=== PATIENT | female | born 1940 | race Caucasian/White ===

== ENCOUNTER 2019-11-24 07:10 | Day surgery (SDC) | payer MEDICARE, BC ==
[2019-11-24] MEDS ORDERED: Propofol 200 MG/20 ML SDV IV ONE (07:11)
[2019-11-24] MEDS ORDERED: Lactated Ringers 1,000 ML IV SCH (07:30)
[2019-11-24] MEDS ORDERED: Sodium Chloride 0.9% 10 ML Syringe FLUSH PRN (07:30)
--- NOTE | 2019-11-24 08:15 | PCM.PN ---
- General Info Date of Service: 11/24/19 - Review of Systems Systems Review Comment:: 78 y/o female with recent Positive Cologuard test here for colonoscopy. Her last colon exam was about 10 years ago. She denies any recent symptoms. She is medically stable to proceed. Her recent H and P is reviewed and no significant changes are noted. I have discussed the proposed colonoscopy with the patient. Her questions are answered and she agrees to proceed accepting risks. - Patient Data Vitals - Most Recent: Last Vital Signs Temp 97.6 F 11/24/19 07:20 Pulse 73 11/24/19 07:20 Resp 18 11/24/19 07:20 BP 132/76 11/24/19 07:20 Pulse Ox 98 11/24/19 07:20 Weight - Most Recent: 184 lb Med Orders - Current: Current Medications Lactated Ringer's (Ringers, Lactated) 1,000 mls @ 125 mls/hr IV ASDIRECTED NGUYEN Last Admin: 11/24/19 07:45 Dose: 125 mls/hr Sodium Chloride (Saline Flush) 10 ml FLUSH ASDIRECTED PRN PRN Reason: Keep Vein Open - Exam Lungs: Clear to Auscultation Cardiovascular: No Murmurs, Irregular Rhythm Sepsis Event Note - Focused Exam Vital Signs: Vital Signs Temp Pulse Resp BP Pulse Ox 11/24/19 07:20 97.6 F 73 18 132/76 98 Date Exam was Performed: 11/24/19 Time Exam was Performed: 08:11 - Problem List Review Problem List Initiated/Reviewed/Updated: Yes - My Orders Last 24 Hours: My Active Orders 11/24/19 07:30 Patient Status [ADT] Routine Blood Glucose Check, Bedside [RC] ONETIME Patient to Empty Bladder [RC] ASDIRECTED Verify Patient Consent Obtain [RC] ASDIRECTED Lactated Ringers [Ringers, Lactated] 1,000 ml IV ASDIRECTED Sodium Chloride 0.9% [Saline Flush] 10 ml FLUSH ASDIRECTED PRN Peripheral IV Insertion Adult [OM.PC] Routine 11/24/19 Breakfast Nothing Per Oral Diet [DIET] - Assessment Assessment:: Positive Cologuard Test - Plan Plan:: Colonoscopy
--- NOTE | 2019-11-24 09:09 | PCM.OPNOTE ---
- General Post-Op/Procedure Note Date of Surgery/Procedure: 11/24/19 Operative Procedure(s): Colonoscopy with Polypectomy Findings: Flat, soft irregular polyp descending colon Extensive Sigmoid Diverticulosis Moderate External hemorrhoids Pre Op Diagnosis: Positive Cologuard Test Post-Op Diagnosis: Descending Colon Polyp. Sigmoid Diverticulosis. External Hemorrhoids Anesthesia Technique: MAC Primary Surgeon: Jerzy Bonilla Pathology: Descending Colon Polyp EBL in mLs: 3 Complications: None Condition: Good
--- NOTE | 2019-11-24 15:59 | OR ---
DATE OF OPERATION: 11/24/2019 SURGEON: Jerzy Bonilla MD PREOPERATIVE DIAGNOSIS: Positive Cologuard test. POSTOPERATIVE DIAGNOSES: Descending colon polyp, sigmoid colon diverticulosis, external hemorrhoids. OPERATION PERFORMED: Colonoscopy with polypectomy. INDICATIONS FOR SURGERY: This 78-year-old female was recently noted to have a positive Cologuard test. It has been several years since her last colon exam and she comes for colonoscopy. FINDINGS: In the descending colon approximately 45 cm from the anal verge, there was noted a flat irregular soft polyp approximately 12 mm in size noted on one of the colonic folds. The patient also has extensive diverticulosis of the sigmoid region, although this does not appear to be acutely inflamed or otherwise complicated. There are also moderate to large external hemorrhoids. PROCEDURE IN DETAIL: The patient was taken to the procedure room. She was given intravenous sedation, and with her in the left lateral decubitus position, digital rectal exam was performed. No rectal masses were noted. The Olympus colonoscope was inserted into the rectum. Retroflexed examination of the rectal canal was performed. The scope was then carefully advanced under direct visualization through the entire length of the colon until the cecum was reached. Cecal acquisition was confirmed by noting the normal internal cecal anatomy including the appendiceal orifice and ileocecal valve. After examining the cecum, the scope was slowly withdrawn sequentially re-examining the colonic segments. In the descending colon, the above-described polyp was identified. This was removed with cautery snare. The polyp was quite soft and the majority of the polyp was removed with a snare without cautery. A few small fragments of remaining polyp were then cauterized with the cautery snare and this was also used at the base of the polypectomy site and hemostasis appeared to be maintained well during this procedure. With no sign of any bleeding or any other complication, examination was continued examining the remainder of the colon and rectum. After the exam had been completed, the scope was removed and the patient was taken from the procedure room in satisfactory condition. ESTIMATED BLOOD LOSS: 3 mL. COMPLICATIONS: None. PROGNOSIS: Good. /[id number] NIKKO/PARAG
== END 2019-11-24 09:55 | disposition home or self-care (01) ==
LOC: FB.SDS 07:10
PROVIDERS: ATTEND Surgery
DX: D12.5 Benign neoplasm of sigmoid colon (principal); K57.30 Diverticulosis of large intestine without perforation or abscess without bleeding; K64.4 Residual hemorrhoidal skin tags; I10 Essential (primary) hypertension; I48.91 Unspecified atrial fibrillation; E11.9 Type 2 diabetes mellitus without complications; G47.30 Sleep apnea, unspecified; Z79.01 Long term (current) use of anticoagulants; Z88.6 Allergy status to analgesic agent; Z79.84 Long term (current) use of oral hypoglycemic drugs; Z79.899 Other long term (current) drug therapy; Z99.89 Dependence on other enabling machines and devices
CPT/HCPCS: 00812; 45385; 82962; 88305; J2704; J7120

== ENCOUNTER 2021-02-28 07:03 | Day surgery (SDC) | payer MEDICARE, BC ==
[2021-02-28] MEDS ORDERED: Propofol 200 MG/20 ML SDV IV ONE (07:04)
[2021-02-28] MEDS ORDERED: Sodium Chloride 0.9% 10 ML Syringe FLUSH PRN (07:15)
[2021-02-28] MEDS ORDERED: Lactated Ringers 1,000 ML IV SCH (07:15)
--- NOTE | 2021-02-28 08:56 | PCM.PN ---
- General Info Date of Service: 02/28/21 - Review of Systems Systems Review Comment:: 80 y/o female with history of colon polyps here for colonoscopy. She had a broad based sessile serrated adenoma removed 1 year ago. She is medically stable to proceed. Her recent H and P is reviewed and no significant changes are noted. I have discussed the proposed colonoscopy with the patient. She agrees to proceed accepting risks. - Patient Data Vitals - Most Recent: Last Vital Signs Temp 98.3 F 02/28/21 07:05 Pulse 58 L 02/28/21 07:05 Resp 16 02/28/21 07:05 BP 125/75 02/28/21 07:05 Pulse Ox 98 02/28/21 07:05 Weight - Most Recent: 191 lb 9.3 oz Lab Results Last 24 Hours: Laboratory Results - last 24 hr 02/28/21 02/28/21 Range/Units 07:21 07:21 POC Glucose 117 H 117 H (80-116) mg/dL Med Orders - Current: Current Medications Lactated Ringer's (Ringers, Lactated) 1,000 mls @ 125 mls/hr IV ASDIRECTED NGUYEN Last Admin: 02/28/21 07:30 Dose: 125 mls/hr Documented by: Sodium Chloride (Sodium Chloride 0.9% 10 Ml Syringe) 10 ml FLUSH ASDIRECTED PRN PRN Reason: Keep Vein Open - Patient Data Lab Results Last 24 hrs: Laboratory Results - last 24 hr 02/28/21 02/28/21 Range/Units 07:21 07:21 POC Glucose 117 H 117 H (80-116) mg/dL Sepsis Event Note - Focused Exam Vital Signs: Vital Signs Temp Pulse Resp BP Pulse Ox 02/28/21 07:05 98.3 F 58 L 16 125/75 98 - Problem List Review Problem List Initiated/Reviewed/Updated: Yes - My Orders Last 24 Hours: My Active Orders 02/27/21 Dinner Nothing Per Oral Diet [DIET] 02/28/21 07:15 Patient Status [ADT] Routine Blood Glucose Check, Bedside [RC] ONETIME Patient to Empty Bladder [RC] ASDIRECTED Verify Patient Consent Obtain [RC] ASDIRECTED Lactated Ringers [Ringers, Lactated] 1,000 ml IV ASDIRECTED Sodium Chloride 0.9% [Saline Flush] 10 ml FLUSH ASDIRECTED PRN Peripheral IV Insertion Adult [OM.PC] Routine - Assessment Assessment:: History of colon polyps - Plan Plan:: Colonoscopy
--- NOTE | 2021-02-28 09:48 | PCM.OPNOTE ---
- General Post-Op/Procedure Note Date of Surgery/Procedure: 02/28/21 Operative Procedure(s): Colonoscopy with Polypectomy Findings: Descending colon sessile polyp Extensive Sigmoid Diverticulosis Pre Op Diagnosis: history of colon polyps Post-Op Diagnosis: Colon Polyp. Sigmoid Diverticulosis Anesthesia Technique: MAC Primary Surgeon: Jerzy Bonilla Pathology: Descending Colon Polyp EBL in mLs: 0 Complications: None Condition: Good
--- NOTE | 2021-02-28 11:43 | OR ---
DATE OF OPERATION: 02/28/2021 SURGEON: Jerzy Bonilla MD PREOPERATIVE DIAGNOSIS: Colon polyps. POSTOPERATIVE DIAGNOSIS: Colon polyp, diverticulosis. OPERATION PERFORMED: Colonoscopy with polypectomy. INDICATIONS FOR SURGERY: This 80-year-old female has a history of a sessile polyp removed 1 year ago. She comes today for a followup of this polyp. FINDINGS: In the descending colon approximately 45 cm from the anal verge, there is a broad-based soft sessile polyp estimated at 1.5 cm in size. There was no associated mass. There is also extensive diverticulosis of the sigmoid region, but this does not appear to be acutely inflamed or otherwise complicated. PROCEDURE IN DETAIL: She was given intravenous sedation, and with her in the left lateral decubitus position, digital rectal exam was performed showing no rectal masses. The Olympus colonoscope was inserted into the rectum. Retroflexed examination of the rectal canal was performed. Scope was then carefully advanced under direct visualization through the entire length of the colon until cecum was reached. Cecal acquisition was confirmed by noting the normal internal cecal anatomy including the ileocecal valve. To fully examine the cecum, hand pressure was required and also the patient was placed in the supine position. With these maneuvers, the cecum was able to be clearly viewed. The scope was then slowly withdrawn, sequentially re-examining the colonic segments. In the descending colon, the above-described polyp was identified. This was removed piecemeal fashion in multiple fragments using cautery snare. The polyp did appear to be completely removed. A tattoo was placed in the nearby colon wall to identify the location of this polyp for followup exams. Examination was then completed, and with no sign of complications, scope was removed and the patient was taken from the procedure room in satisfactory condition. ESTIMATED BLOOD LOSS: 0. COMPLICATIONS: None. PROGNOSIS: Good. /[id number] NIKKO/PARAG
== END 2021-02-28 10:45 | disposition home or self-care (01) ==
LOC: FB.SDS 07:03
PROVIDERS: ATTEND Surgery
DX: K63.5 Polyp of colon (principal); I10 Essential (primary) hypertension; G47.33 Obstructive sleep apnea (adult) (pediatric); E11.9 Type 2 diabetes mellitus without complications; I48.21 Permanent atrial fibrillation; I34.0 Nonrheumatic mitral (valve) insufficiency; Z79.899 Other long term (current) drug therapy; Z79.84 Long term (current) use of oral hypoglycemic drugs; Z79.01 Long term (current) use of anticoagulants; Z88.8 Allergy status to other drugs, medicaments and biological substances
CPT/HCPCS: 00812-QZ; 82947; 88305; J2704; J7120